=== PATIENT | female | born 1935 | race Caucasian/White ===

== ENCOUNTER → 2016-12-26 | Outpatient (CLI) | payer MEDICARE, OTHER ==
[~2016-12-26] MED LIST: ALDACTONE 25MG25 MG PO; ALLOPURINOL300 MG PO; ATACAND PO; ATACAND8 MG PO; CENTRUM1 TAB PO; CIPRO 500MG TA500 MG PO; COUMADIN 4MG4 MG/TAB PO; COUMADIN 5MG5 MG/TAB PO; CYTOXAN PO; CYTOXIN PO; DIPYRIDAMOLE PO; FLAGYL500 MG PO; FOLIC ACID; FOSAMAX PO; FUROSEMIDE PO; HYDROCODONE PO; LASIX 20MG TABL20 MG PO; LASIX 40MG TABL40 MG PO; LASIX ORAL S10 MG/ML PO; LASIX PO; LIPITOR 10MG10 MG PO; LIPITOR 80MG80 MG PO; LIPITOR20 MG PO; LIPITOR40 MG PO; LORTAB 7.5/5001 TAB PO; METHOTREXA2.5 MG/TAB PO; NEXIUM40 MG PO; NORCO 325 MG-101 TAB PO; OSCAL 500MG/VI500 MG PO; PERSANTINE PO; POTASSIUM CH2 MEQ/ML PO; POTASSIUM CHLO10 ME2 PO; POTASSIUM CL 220 MEQ PO; PREDNISONE PO; PREDNISONE10 MG PO; PREDNISONE20 MG PO; PREVACID 30MG30 MG PO; TEKTURNA PO; TRAMADOL50 MG PO; VITAMIN B12 PO; VITAMIN C500 MG PO; ZOFRAN 4MG T4 MG/TAB PO
== END ==
LOC: COL.RAD 10:01
DX: M48.02 Spinal stenosis, cervical region (principal); M50.30 Other cervical disc degeneration, unspecified cervical region; M51.24 Other intervertebral disc displacement, thoracic region

== ENCOUNTER 2017-05-01 17:17 | Observation (INO) | payer MEDICARE, OTHER ==
[~2017-05-01] VITALS: Ht 157.5 cm; Wt 89.6 kg
[~2017-05-01 17:17] MED LIST changes: -CIPRO 500MG TA500 MG PO; -FLAGYL500 MG PO; -ZOFRAN 4MG T4 MG/TAB PO
[2017-05-01] MEDS ORDERED: FLAGYL500 MG PO (17:36)
[2017-05-01] MEDS ORDERED: ZOFRAN 4MG T4 MG/TAB PO (17:37)
[2017-05-01] MEDS ORDERED: CIPRO 500MG TA500 MG PO (17:37)
[2017-05-01 18:01] LABS: BASO % 0.2 % (0.0-2.0); GRAN # 11.5 (1.4-6.5); GRAN % 87.8 % (42.2-75.2); HEMATOCRIT 40.6 % (37.0-47.0); HEMOGLOBIN 13.6 g/dl (12.5-16.0); LYMPH # 0.8 (1.2-3.4); MEAN CELL VOLUME 93 fl (80.0-100.0); MEAN CORPUSCULAR HEMOGLOBIN 31 pg (27.0-31.0); MEAN CORPUSCULAR HGB CONC 34 g/dl (33.0-37.0); MEAN PLATELET VOLUME 10.2 fl (7.4-10.4); MONO # 0.7 (0.1-0.6); MONO % 5.5 % (1.7-9.3); PLATELET COUNT 163 K/mm3 (130-400); RED BLOOD COUNT 4.35 M/mm3 (4.10-5.30); REDCELL DISTRIBUTION WIDTH-CV 12.9 % (11.5-14.5); WHITE BLOOD COUNT 13.2 K/mm3 (4.8-10.8)
[2017-05-01 18:12] LABS: ADJUSTED CALCIUM 8.9 mg/dL (8.4-10.2); ALANINE AMINOTRANSFERASE 27 U/L (9-52); ALBUMIN 4.2 gm/dL (3.5-5.0); ALKALINE PHOSPHATASE 75 U/L (50-136); ANION GAP 13 mmol/L (7-16); BILIRUBIN,TOTAL 0.8 mg/dL (0.0-1.0); BLOOD UREA NITROGEN 24 mg/dL (7-17); C-REACTIVE PROTEIN 7.8 mg/dL (0.0-0.9); CALCIUM 9.1 mg/dL (8.4-10.2); CARBON DIOXIDE 25 mmol/L (22-30); CHLORIDE 97 mmol/L (98-107); CREATININE, serum 0.75 mg/dL (0.52-1.25); GLUCOSE 113 mg/dL (74-106); LIPASE 80 U/L (23-300); POTASSIUM 3.7 mmol/L (3.4-5.0); SODIUM 136 mmol/L (137-145); TOTAL PROTEIN 7.5 gm/dL (6.4-8.2)
[2017-05-01 18:20] LABS: PH 5 (5-8); URINE APPEARANCE Hazy; URINE BACTERIA None Seen /hpf; URINE BILIRUBIN Negative (NEGATIVE); URINE BLOOD 2+ (NEGATIVE); URINE COLOR Amber; URINE GLUCOSE Negative (NEGATIVE); URINE KETONE 1+ (NEGATIVE); URINE RBC 20-50 /hpf; URINE UROBILINOGEN Negative (NEGATIVE)
[2017-05-01 18:21] LABS: TROPONIN-I < 0.012 ng/mL (0.000-0.034)
[2017-05-01 19:28] LABS: PH 5 (5-8); SQUAMOUS EPITHELIAL None Seen /hpf; URINE APPEARANCE Clear; URINE BACTERIA None Seen /hpf; URINE BILIRUBIN Negative (NEGATIVE); URINE BLOOD 2+ (NEGATIVE); URINE COLOR Amber; URINE GLUCOSE Negative (NEGATIVE); URINE KETONE 1+ (NEGATIVE); URINE RBC 20-50 /hpf; URINE UROBILINOGEN Negative (NEGATIVE); URINE WBC 0-2 /hpf
[2017-05-01 21:04] VITALS: BP 134/62; PULSE 40; PULSE 80; TEMP 98.6
[2017-05-02 03:05] VITALS: BP 147/49; PULSE 79; TEMP 98.6
[2017-05-02 07:04] LABS: BASO % 0.2 % (0.0-2.0); EOS # 0.2 (0.0-0.7); EOS % 1.6 % (0-4.0); GRAN # 6.6 (1.4-6.5); GRAN % 71.5 % (42.2-75.2); LYMPH # 1.4 (1.2-3.4); LYMPH % 15.4 % (20.0-51.0); MEAN CELL VOLUME 96 fl (80.0-100.0); MEAN CORPUSCULAR HGB CONC 32 g/dl (33.0-37.0); MEAN PLATELET VOLUME 9.9 fl (7.4-10.4); PLATELET COUNT 130 K/mm3 (130-400); RED BLOOD COUNT 3.82 M/mm3 (4.10-5.30); REDCELL DISTRIBUTION WIDTH-CV 13.1 % (11.5-14.5); WHITE BLOOD COUNT 9.3 K/mm3 (4.8-10.8)
[2017-05-02 07:05] LABS: HEMATOCRIT 36.8 % (37.0-47.0); HEMOGLOBIN 11.8 g/dl (12.5-16.0); MEAN CORPUSCULAR HEMOGLOBIN 31 pg (27.0-31.0)
[2017-05-02 07:09] LABS: CALCIUM 7.8 mg/dL (8.4-10.2); CREATININE, serum 0.71 mg/dL (0.52-1.25); POTASSIUM 3.4 mmol/L (3.4-5.0)
[2017-05-02 08:30] VITALS: BP 140/66; PULSE 71; TEMP 97.5
[2017-05-02 12:30] VITALS: BP 127/63; PULSE 72; TEMP 98
[2017-05-02 16:02] VITALS: BP 132/68; PULSE 68; TEMP 98.3
[2017-05-02 19:41] VITALS: BP 145/57; PULSE 66; TEMP 98.4
[2017-05-03 00:53] VITALS: BP 138/65; PULSE 70; TEMP 98.7
[2017-05-03 03:03] VITALS: BP 140/64; PULSE 80; TEMP 98.4
[2017-05-03 08:06] VITALS: BP 136/69; PULSE 71; TEMP 98.2
[2017-05-03 08:16] LABS: BASO % 0.3 % (0.0-2.0); EOS # 0.2 (0.0-0.7); EOS % 2.6 % (0-4.0); GRAN # 6.2 (1.4-6.5); GRAN % 70.5 % (42.2-75.2); LYMPH # 1.4 (1.2-3.4); LYMPH % 16.1 % (20.0-51.0); MEAN CELL VOLUME 95 fl (80.0-100.0); MEAN CORPUSCULAR HGB CONC 32 g/dl (33.0-37.0); MEAN PLATELET VOLUME 10.6 fl (7.4-10.4); MONO # 0.9 (0.1-0.6); MONO % 10.2 % (1.7-9.3); PLATELET COUNT 127 K/mm3 (130-400); RED BLOOD COUNT 3.73 M/mm3 (4.10-5.30); REDCELL DISTRIBUTION WIDTH-CV 12.8 % (11.5-14.5); WHITE BLOOD COUNT 8.8 K/mm3 (4.8-10.8)
[2017-05-03 08:19] LABS: CALCIUM 7.7 mg/dL (8.4-10.2); CREATININE, serum 0.57 mg/dL (0.52-1.25); HEMATOCRIT 35.4 % (37.0-47.0); HEMOGLOBIN 11.4 g/dl (12.5-16.0); MEAN CORPUSCULAR HEMOGLOBIN 31 pg (27.0-31.0); POTASSIUM 3.7 mmol/L (3.4-5.0)
== END 2017-05-03 10:23 | disposition home or self-care (01) ==
LOC: COL.ER 17:17 → MEDICAL 19:37
PROVIDERS: Emergency Medicine; Family Medicine; Physician Assistant
DX: R10.9 Unspecified abdominal pain (principal); R19.7 Diarrhea, unspecified; R11.2 Nausea with vomiting, unspecified; E86.0 Dehydration; I10 Essential (primary) hypertension; Z90.49 Acquired absence of other specified parts of digestive tract; N28.1 Cyst of kidney, acquired; Z90.710 Acquired absence of both cervix and uterus; M43.06 Spondylolysis, lumbar region; K44.9 Diaphragmatic hernia without obstruction or gangrene; M41.9 Scoliosis, unspecified; M06.9 Rheumatoid arthritis, unspecified; Z87.891 Personal history of nicotine dependence; Z82.49 Family history of ischemic heart disease and other diseases of the circulatory system; Z96.653 Presence of artificial knee joint, bilateral; Z82.61 Family history of arthritis; M47.816 Spondylosis without myelopathy or radiculopathy, lumbar region; E78.5 Hyperlipidemia, unspecified
CPT/HCPCS: 99223-AI; 99232-AI; G0378; J2270; J2405; J2550; J3480; J7030; Q9967